=== PATIENT | male | born 1995 | race Two or more races ===

== ENCOUNTER → 2017-04-12 | Emergency (ER) | payer BC, OTHER ==
[~2017-04-12] MED LIST: IBUPROFEN 400 MG TABLET (FP) PO ONE
[2017-04-12 19:55] VITALS: TEMP 97; BMI 25.8
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
--- NOTE | 2017-04-13 00:07 | PDOC ---
*Physical Exam - Vital Signs Last Vital Signs Temp Pulse Resp BP Pulse Ox 97 F L 64 18 117/79 99 04/12/17 19:52 04/12/17 19:52 04/12/17 19:52 04/12/17 19:52 04/12/17 19:52 ED Treatment Course - Medications Given in the ED: ED Medications Discontinued Medications Generic Name Dose Route Start Last Admin Trade Name Freq PRN Reason Stop Dose Admin Ibuprofen 800 mg 04/12/17 20:19 04/12/17 20:23 Motrin - PO 04/12/17 20:20 800 mg ONCE ONE Administration *DC/Admit/Observation/Transfer Diagnosis at time of Disposition: Orbital fracture Qualifiers: Encounter type: initial encounter Fracture type: closed Qualified Code(s): S02.80XA - Fracture of other specified skull and facial bones, unspecified side , initial encounter for closed fracture - Discharge Dispostion Disposition: TRANSFER ACUTE CARE/OTHER HOSP Condition at time of disposition: Stable - Referrals - Patient Instructions Printed Discharge Instructions: DI for Orbital Fracture - Post Discharge Activity - Transfer to Acute Care Facility Receiving Facility: [facility].
[2017-04-13 00:14] VITALS: BP 133/82; PULSE 70
== END | disposition short-term general hospital (02) ==
LOC: JERFT 19:48 → JER 19:48
DX: S02.82XA Fracture of other specified skull and facial bones, left side, initial encounter for closed fracture (principal); W21.03XA Struck by baseball, initial encounter; Y93.89 Activity, other specified; Y92.89 Other specified places as the place of occurrence of the external cause
CPT/HCPCS: 70486-TC; 99284-25

== ENCOUNTER 2018-08-08 18:08 | Emergency (ER) | payer BC ==
[2018-08-08 18:28] VITALS: BP 118/70; PULSE 78; TEMP 97.7; BMI 26.6
[2018-08-08] MEDS ORDERED: DIPHTH,PERTUSS(ACELL),TET VAC 0.5 ML VIAL IM ONE (18:48)
[2018-08-08] MEDS ORDERED: IBUPROFEN 400 MG TABLET (FP) PO ONE ×2 (18:48→19:02)
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
== END 2018-08-08 19:15 | disposition home or self-care (01) ==
LOC: JERFT 18:08
PROC: 0HQ1XZZ Repair Face Skin, External Approach (ICD-10-PCS; principal; 2018-08-08)
PROC: 3E0234Z Introduction of Serum, Toxoid and Vaccine into Muscle, Percutaneous Approach (ICD-10-PCS; 2018-08-08)
DX: S01.112A Laceration without foreign body of left eyelid and periocular area, initial encounter (principal); Y00.XXXA Assault by blunt object, initial encounter; Y93.89 Activity, other specified; Y92.89 Other specified places as the place of occurrence of the external cause; Y99.8 Other external cause status
CPT/HCPCS: 99281-25